=== PATIENT | female | born 1985 | race African-American/Black ===

== ENCOUNTER 2017-06-04 22:56 | Inpatient (IN) | payer OTHER ==
[~2017-06-04] VITALS: Ht 175.3 cm; Wt 97.5 kg
--- NOTE | ~2017-06-04 | HP ---
Unit #: [id number] #: [id number] Patient: PHAM ROQUE [id number] [place] [address] [id number] MR#: [id number] NAME: PHAM ROQUE ROOM: P180 Age: 32 Sex: F Admission Date: 06/05/2017 : 1985 Attending Physician: Jovan Weeks M.D. Admitting Physician: Jovan Weeks M.D. Primary Care Physician: Primary Care Physician No HISTORY AND PHYSICAL HISTORY OF PRESENT ILLNESS The patient is a 32-year-old female, admitted to [facility] on 06/05/2017, for suicidal ideation. PAST MEDICAL HISTORY 1. Alcohol abuse. 2. Marijuana use. PAST SURGICAL HISTORY The patient denies. SOCIAL HISTORY She is unemployed, she lives with friends, she smokes one pack of cigarettes daily, drinks a half a pint plus two 24 oz beers per day, smokes marijuana [id number] times per week. FAMILY MEDICAL HISTORY Noncontributory. ALLERGIES Augmentin CURRENT MEDICATIONS Include: 1. Celexa 2. Oxcarbazepine REVIEW OF SYSTEMS CONSTITUTIONAL: No fever or chills. HEENT: Denies any sore throat, ear pain or runny nose. CARDIOVASCULAR: Denies chest pain, irregular heart rhythm or palpitations. CHEST: Denies shortness of breath or cough. No hemoptysis. GASTROINTESTINAL: Denies nausea, vomiting, diarrhea or chronic constipation. ENDOCRINE: Denies history of increased thirst or urination. No recent significant weight loss or gain. GENITOURINARY: Denies dysuria, frequency, or hematuria. SKIN: Denies any rashes. HEMATOLOGIC: Denies history of increased bleeding or bruising. MUSCULOSKELETAL: Denies any hot, swollen joints. No generalized muscle pain. NEUROLOGIC: Denies problems with vision or speech. No frequent, severe headaches. No numbness, tingling or weakness in any extremities. Denies Unit #: [id number] #: [id number] Patient: PHAM ROQUE loss of bladder or bowel control. PHYSICAL EXAMINATION GENERAL: She is awake, alert, and oriented and in no acute distress. VITAL SIGNS: Temperature 98.5, heart rate 81, respirations 16, blood pressure 138/82. HEIGHT: 5 feet 9 inches. WEIGHT: 215 pounds. SKIN: Warm and dry without rash or lesion. HEENT: Normocephalic. TMs not viewed. Oral and nasal passages clear. Conjunctivae clear. PERRLA. EOMs intact. NECK: Supple without lymphadenopathy or thyromegaly. HEART: Regular rate and rhythm without murmur. LUNGS: Clear. ABDOMEN: Soft, nontender. : Not done. EXTREMITIES: No evidence of cyanosis, clubbing or edema. Moves all without focal deficit. NEUROLOGICAL: Grossly within normal limits. Cranial Nerves: II: Visual hassan are intact. III, IV AND : Extraocular movements are intact. Pupils are equal, round and reactive to light. V: Facial sensation is grossly normal. VII: Facial movements and expression are normal. VIII: Auditory acuity grossly intact. IX, X: Uvula is midline. Phonation is normal. XI: Patient shrugs shoulders and turns head normally. XII: Tongue protrudes in the midline. Sensory and Motor Function: Sensory and motor sensation is grossly normal. Motor: moves all extremities well. Coordination: Gait is normal. Deep Tendon Reflexes: Intact. IMPRESSION 1. Psychiatric admission. 2. Alcohol abuse. RECOMMENDATIONS Psychiatric, per psychiatrist. MEDICAL No contraindications to participating in facility's activities. MEDICAL PROGNOSIS Good. MEDICAL CONDITION Stable. Dictated by... Elle Leo/andrea TD: 06/05/2017 11:56 JOB #: [id number] Unit #: [id number] #: [id number] Patient: PHAM ROQUE HISTORY AND PHYSICAL Page 1 of 1 X SEDA JIMÉNEZ APRN HISTORY AND PHYSICAL
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
--- NOTE | ~2017-06-04 | DS ---
Unit #: [id number] #: [id number] Patient: BAYLEE ROQUE [id number] [facility] [address] [place] [address] [id number] MR#: [id number] NAME: BAYLEE ROQUE ROOM: P180 Age: 32 Sex: F Admission Date: 06/05/2017 : 1985 Discharge Date: 06/06/2017 Attending Physician: Jovan Weeks M.D. Primary Care Physician: Primary Care Physician No DISCHARGE SUMMARY REASON FOR ADMISSION Baylee is a 32-year-old woman, who came to the hospital reporting that she was off her medications and "needed to get some help." She was unable to contract for safety with the plan to jump from the bridge and was admitted for stabilization. DIAGNOSTIC STUDIES Laboratory data, Beta HCG was negative. CBC and CMP were within normal limits. Urine drug screen was positive for marijuana. Urinalysis demonstrated trace protein and 1+ urobilinogen. HOSPITAL COURSE The patient was admitted and placed on suicide precautions. The alcohol protocol was initiated due to her recent alcohol use, and citalopram and Trileptal were restarted from her outpatient provider. The patient was somewhat irritable and attended few groups and activities. The following day she went to the nursing staff demanding discharge against medical advice. Upon interview with the pump house engineer the patient stated that she is dissatisfied with the fifteen minute rounding system, cannot sleep, and is not getting enough to eat. The patient was offered solutions for these but she stated that she "just need to get back to my normal routine," and denied suicidal ideation. At this point, she was granted discharge AGAINST MEDICAL ADVICE, at her request. DISCHARGE DIAGNOSES Lohman I Bipolar depression, F31.4. Alcohol abuse. Lohman II Borderline personality traits noted. Lohman III None acute. Lohman IV Lohman V INSTRUCTIONS TO PATIENT Follow up with [facility] at the patient's discretion. DISCHARGE MEDICATIONS None. CONDITION AT DISCHARGE Fair. Unit #: [id number] #: [id number] Patient: BAYLEE ROQUE PROGNOSIS Fair. DIET AND ACTIVITY Ad karrie. Dictated by... Jovan Weeks M.D. SOREN/andrea TD: 06/09/2017 08:18 JOB #: [id number] DISCHARGE SUMMARY Page 1 of 1 X Jovan Weeks MD DISCHARGE SUMMARY
[2017-06-05 09:45] LABS: BASOPHIL% 0.3 % (0-2.5); EOSINOPHIL% 0.6 % (0.0-7.0); HEMATOCRIT 38.1 % (35.0-45.0); HEMOGLOBIN 12.6 gm/dL (12.0-16.0); LYMPHOCYTE# 1.7 X10e3 (1.0-3.5); LYMPHOCYTE% 35.6 % (17.0-45.0); MEAN CORPUSCULAR HEMOGLOBIN 31.4 PG (28-34); MEAN CORPUSCULAR HGB CONC 33.1 g/dL (30-36); MEAN PLATELET VOLUME 8.7 FL (6.5-11.5); MONOCYTE# 0.4 X10e3 (0-1.0); NEUTROPHIL# 2.7 X10e3 (1.5-7.1); NEUTROPHIL% 54.5 % (40-75); PLATELET COUNT 196 X10e3 (140-420); RED BLOOD COUNT 4.01 X10e (3.90-5.30); RED CELL DISTRIBUTION WIDTH 13.3 % (11.0-15.5); WHITE BLOOD COUNT 4.9 X10e3 (4.0-10.5)
[2017-06-05 09:47] LABS: DIFF IND NO
[2017-06-05 11:08] LABS: ALBUMIN SERUM 3.7 g/dL (3.5-5.0); BILIRUBIN,TOTAL 0.2 mg/dL (0.2-2.0); BUN/CREATININE RATIO 15.55; CALCIUM SERUM 8.9 mg/dL (8.4-10.2); CREATININE SERUM 0.9 mg/dL (0.6-1.4); GLOM FILT RATE Estimated 96.8 mL/min (>60); POTASSIUM 4.2 mmol/L (3.5-5.1); PROTEIN TOTAL SERUM 6.8 g/dL (6.0-8.3)
[2017-06-05 12:30] LABS: URINE APPEARANCE TURBID; URINE BILIRUBIN NEG (NEG); URINE BLOOD NEG (NEG); URINE COLOR YELLOW; URINE GLUCOSE NEG (NEG); URINE KETONE NEG (NEG); URINE LEUKOCYTE ESTERASE NEG (NEG); URINE NITRATE NEG (NEG); URINE PH 5.5 (5-8); URINE PROTEIN TRACE (NEG); URINE SPECIFIC GRAVITY 1.029 (1.003-1.035)
[2017-06-05 13:01] LABS: AMPHETAMINE NEG (NEG); BARBITURATES NEG (NEG); BENZODIAZEPINES NEG (NEG); COCAINE NEG (NEG); MARIJUANA POS (NEG); OPIATES NEG (NEG); TRICYCLIC ANTIDEPRESSANTS NEG (NEG); U METHADONE NEG (NEG)
== END 2017-06-06 09:00 | disposition home or self-care (01) | DRG 885 ==
LOC: EDSEX → EDBD → EDSEX 06-05 00:51 → P1E 06-05 00:51
PROVIDERS: Psychiatry & Neurology Psychiatry
PROC: HZ2ZZZZ Detoxification Services for Substance Abuse Treatment (ICD-10-PCS; principal; 2017-06-05)
DX: F31.9 Bipolar disorder, unspecified (principal); F60.3 Borderline personality disorder; F10.10 Alcohol abuse, uncomplicated; Z81.8 Family history of other mental and behavioral disorders
CPT/HCPCS: 80053; 80307; 81003; 84703; 85025; 86592